=== PATIENT | male | born 1985 | race Caucasian/White ===

== ENCOUNTER 2018-04-23 02:22 | Emergency (ER) | payer MEDICAID ==
[~2018-04-23] VITALS: Ht 172.7 cm; Wt 97.3 kg
[2018-04-23 02:23] VITALS: BP 150/94
[2018-04-23] MEDS ORDERED: PROPARACAINE OPHTH 0.5%, 15ML ONE (03:01)
== END 2018-04-23 03:26 | disposition home or self-care (01) ==
LOC: ED 03:20
DX: B30.9 Viral conjunctivitis, unspecified (principal)
CPT/HCPCS: 99283

== ENCOUNTER 2018-12-27 20:27 | Emergency (ER) | payer SELFPAY ==
[~2018-12-27] VITALS: Ht 170.2 cm; Wt 101.7 kg
[2018-12-27 20:31] VITALS: BP 142/93
[2018-12-27] MEDS ORDERED: METHOCARBAMOL 750 MG TABLET PO ONE (21:00)
[2018-12-27] MEDS ORDERED: KETOROLAC 30 MG/1 ML IM ONE (21:00)
[2018-12-27] MEDS ORDERED: KETOROLAC 30 MG/1 ML ONE (22:11)
[2018-12-27] MEDS ORDERED: METHOCARBAMOL 750 MG TABLET ONE (22:11)
== END 2018-12-28 00:47 | disposition home or self-care (01) ==
LOC: ED 23:59
DX: S39.012A Strain of muscle, fascia and tendon of lower back, initial encounter (principal); M46.1 Sacroiliitis, not elsewhere classified; Z86.73 Personal history of transient ischemic attack (TIA), and cerebral infarction without residual deficits; X58.XXXA Exposure to other specified factors, initial encounter; Y93.89 Activity, other specified; Y92.89 Other specified places as the place of occurrence of the external cause; Y99.8 Other external cause status
CPT/HCPCS: 36415; 72110; 85379; 96372; 99284; J1885